=== PATIENT | male | born 1975 | race Native Hawaiian/Other Pacific Islander ===

== ENCOUNTER 2016-10-29 11:24 | Emergency (ER) | payer OTHER ==
[2016-10-29 11:39] VITALS: BP 130/85; PULSE 93; RESP 18; TEMP 97.6; O2SAT 97
--- NOTE | 2016-10-29 11:59 | C.PDOC ---
History Of Present Illness 41 yr old male presents to the ER with complaints of right shoulder pain, associated with intermittent tingling sensation extend down to right arm for the past 1 week. Patient states the pain is localized over Right shoulder and worse with movement. Patient denies trauma, injury, headache, dizziness, neck pain, chest pain, SOB, dyspnea, diaphoresis, palpitation, nausea, vomiting, abdominal pain, back pain, obvious deformity, weakness or numbness to B/L UEs. Ambulate to Ed for evaluation, not in any apparent distress.. Time Seen by Provider: 10/29/16 11:42 Chief Complaint (Nursing): Upper Extremity Problem/Injury History Per: Patient History/Exam Limitations: no limitations Onset/Duration Of Symptoms: Days (1 week) Past Medical History Reviewed: Historical Data, Nursing Documentation, Vital Signs Vital Signs: Last Vital Signs Temp 97.6 F 10/29/16 11:37 Pulse 93 H 10/29/16 11:37 Resp 18 10/29/16 11:37 BP 130/85 10/29/16 11:37 Pulse Ox 97 10/29/16 12:42 Family History: States: No Known Family Hx - Social History Hx Alcohol Use: No Hx Substance Use: No - Immunization History Hx Tetanus Toxoid Vaccination: No Hx Influenza Vaccination: No Hx Pneumococcal Vaccination: No Review Of Systems Except As Marked, All Systems Reviewed And Found Negative. Cardiovascular: Negative for: Chest Pain Respiratory: Negative for: Shortness of Breath Gastrointestinal: Negative for: Nausea, Vomiting, Abdominal Pain Musculoskeletal: Positive for: Shoulder Pain (Right shoulder pain with intermittent tingling sensation in the right arm.). Negative for: Neck Pain, Back Pain Neurological: Negative for: Weakness, Numbness Physical Exam - Physical Exam Appears: Well, Non-toxic, No Acute Distress Skin: Normal Color, Warm, No Rash, No Ecchymosis Throat: Normal, No Erythema, No Exudate, No Drooling Neck: Normal ROM, Trachea Midline, Supple Chest: Symmetrical, No Deformity, No Tenderness Cardiovascular: Rhythm Regular Respiratory: No Decreased Breath Sounds, No Accessory Muscle Use, No Stridor, No Wheezing Back: No CVA Tenderness, No Vertebral Tenderness Extremity: Tenderness (mild tenderness over Right superior shoulder. NO palpable deformity. FAROM, no neurovascular deficits.), Capillary Refill (less than 2sec to Right arm), No Deformity, No Swelling Neurological/Psych: Oriented x3, Normal Speech, Normal Motor, Normal Sensation, Normal Reflexes ED Course And Treatment O2 Sat by Pulse Oximetry: 97 Pulse Ox Interpretation: Normal - Other Rad X-Ray - Right Shoulder X-Ray: Interpreted by Me, Viewed By Me Interpretation: no acute fx or dislocation Progress Note: On re-eval, pt is afebrile, hemodynamiclay stable. NOn-toxic. PulseOx 97% RA. ENT: no acute findings. neck: (-) meningeal sign. Lungs: CTA B/L, BS equal B/L. CVS: (+)S1S2. RUE: exam c/w shoulder tendonitis. FAROM, no neurovascular deficits. xray review and appears normal. Pt advised on course of ds. ref. to F/U with Ortho in 2-3 days for re-eval. return if any new changes. Medical Decision Making Medical Decision Making: PLAN: * X-Ray - Right Shoulder * Tramadol PO Disposition Counseled Patient/Family Regarding: Studies Performed, Diagnosis, Need For Followup, Rx Given - Disposition Referrals: [facility] [Outside] [facility] [place] [Outside] Disposition: HOME/ ROUTINE Disposition Time: 12:05 Condition: STABLE Additional Instructions: LIGHT DUTY TO RIGHT ARM, AVOID RIGHT ARM LIFTING TAKE PAIN MEDICATION NEED FOLLOW UP WITH PMD AND ORTHOPEDIST IN 2-3 DAYS FOR RE-EVALUATION. RETURN TO ED IF ANY WORSENING OR NEW CHANGES. Prescriptions: Methocarbamol [Robaxin] 500 mg PO TID #14 tab traMADol [Ultram] 50 mg PO TID #7 tab Instructions: Shoulder Sprain (ED), Tendinitis (ED) - Clinical Impression Clinical Impression: Shoulder tendonitis - PA / SPEECH LANGUAGE PATHOLOGY ASSISTANT / Resident Statement MD/DO has reviewed & agrees with the documentation as recorded. - Scribe Statement The provider has reviewed the documentation as recorded by the Scribe Juliana Soto All medical record entries made by the Scribe were at my direction and personally dictated by me. I have reviewed the chart and agree that the record accurately reflects my personal performance of the history, physical exam, medical decision making, and the department course for this patient. I have also personally directed, reviewed, and agree with the discharge instructions and disposition.
--- NOTE | 2016-10-29 12:53 | RAD ---
PROCEDURE: Radiographs of the Right Shoulder HISTORY: pain COMPARISON: None available. FINDINGS: BONES: No acute displaced fracture. The distal clavicle and underlying ribs appear intact. JOINTS: No acute dislocation. SOFT TISSUES: Soft tissues appear unremarkable. No evidence of radiopaque foreign body. IMPRESSION: No acute displaced fracture or dislocation evident. If symptoms persist or if there is continued clinical concern, x-ray follow-up in 7-10 days should be considered.
== END 2016-10-29 12:38 | disposition home or self-care (01) ==
LOC: C.ER 11:24
DX: M75.91 Shoulder lesion, unspecified, right shoulder (principal)